=== PATIENT | male | born 1940 | race Caucasian/White ===

== ENCOUNTER 2016-07-14 19:53 | Emergency (ER) | payer OTHER ==
--- NOTE | 2016-07-14 20:04 | UCPHY ---
H & P Patient Type: New HPI/ROS: HPI CHIEF COMPLAINT: Mechanical trip and fall HISTORY OF PRESENT ILLNESS: This patient very pleasant 76-year-old male, significant past medical history for Parkinson's disease, presents to the urgent care by private vehicle with his for right shoulder pain and sternal pain when he takes a deep breath in. He denies shortness of breath or significant chest pain. Denies head strike, denies headache, neck pain, back pain. States he was playing basketball with his grandkids tripped and fell landing on his right shoulder he now has pain to his right posterior shoulder in 1 focal area as well as sternal pain. Denies any other areas of trauma or pain not on any blood thinners. Tetanus shot is up-to-date. Past Medical History: Parkinson, prostate cancer Past Surgical History: Gallbladder removal, deep brain stimulators Social History: denies use of drugs alcohol tobacco products, lives locally, at bedside Family History: Noncontributory ROS REVIEW OF SYSTEMS: A comprehensive 10 point review of systems is otherwise negative aside from elements mentioned in the history of present illness. Exam Constitutional triage nursing summary reviewed, vital signs reviewed, awake/ alert. Eyes normal conjunctivae and sclera, EOMI, PERRLA. HENT normal inspection, atraumatic, moist mucus membranes, no epistaxis, neck supple/ no meningismus, no raccoon eyes. Respiratory clear to auscultation bilaterally, normal breath sounds, no respiratory distress, no wheezing. Cardiovascular rate normal, regular rhythm, no murmur, no edema, distal pulses normal. Gastrointestinal soft, non-tender, no rebound, no guarding, normal bowel sounds, no distension, no pulsatile mass. Genitourinary no CVA tenderness. Musculoskeletal right shoulder: full range of motion of the right shoulder, focal tenderness over the posterior scapula 1 particular area, skin tear to the right elbow, distally neurovascular intact good pulse, good cap refill, good radial pulse, nontender to palpation over the sternal region, no laceration, no midline vertebral tenderness, full range of motion, no calf swelling, no tenderness of extremities, no meningismus, good pulses, neurovascularly intact. Skin pink, warm, & dry, no rash, skin atraumatic. Neurologic awake, alert and oriented x 3, AAOx3, moves all 4 extremities equally, motor intact, sensory intact, CN II-XII intact, normal cerebellar, normal vision, normal speech. Psychiatric normal mood/affect. Heme/Lymph/Immune no lymphadenopathy. Differential Diagnosis: includes but is not limited to in a particular, soft tissue injury, bony contusion, musculoskeletal injury, shoulder fracture, rib fracture, sternal fracture, pneumothorax, hemothorax Medical Decision Making: plan for this patient to have a x-ray of the right shoulder, plan for two view chest x-ray. Re-evaluation: ED x-ray right shoulder: this shows a distal comminuted clavicle fracture. ED x-ray chest x-ray 2 view: negative for acute cardiopulmonary disease specifically no evidence of pneumothorax hemothorax significant rib fractures. There are nerve stimulators bilateral anterior chest visualized. 2135: This patient has a distal comminuted clavicular fracture. Patient be placed in a sling. Will need orthopedic follow-up. [place] for pain control. Patient should ice her shoulder. Source: Patient - Family History Significant Family History: No pertinent family hx Constitutional: Initial Vital Signs Temperature (C) 36.6 C 07/14/16 20:13 Heart Rate 77 07/14/16 20:13 Respiratory Rate 18 07/14/16 20:13 Blood Pressure 123/62 H 07/14/16 20:13 O2 Sat (%) 97 07/14/16 20:13 O2 Delivery Mode Room Air Allergies/Adverse Reactions: No Known Allergies Allergy (Verified 08/09/12 18:27) Home Medications: Medication Instructions Recorded Rasagiline Mesylate [Azilect] 1 mg PO 08/09/12 Ropinirole HCl [Requip Xl] 16 mg PO 08/09/12 Silodosin [Rapaflo] 8 mg PO 08/09/12 Hydrocodone/APAP 5/325 [[place] 1 - 2 tab PO Q4H PRN #10 tab 07/14/16 5/325 (*)] Medical Decision Making - Data Points Medications Given: Discontinued Medications Diphtheria/Tetanus/Acell Pertussis (Boostrix) 0.5 ml IM .ONCE ONE Stop: 07/14/16 20:19 Last Admin: 07/14/16 20:37 Dose: 0.5 ml Ibuprofen (Motrin) 400 mg PO ONCE ONE Stop: 07/14/16 20:13 Last Admin: 07/14/16 20:37 Dose: 400 mg Departure - Departure Disposition: Home, Routine, Self-Care Clinical Impression: Clavicle fracture Qualifiers: Encounter type: initial encounter Clavicle location: lateral end Fracture type : closed Fracture alignment: nondisplaced Laterality: right Qualified Code(s): S42.034A - Nondisplaced fracture of lateral end of right clavicle, initial encounter for closed fracture Condition: Good Instructions: Clavicle Fracture (ED) Additional Instructions: 1.Ice her shoulder. 2.take [place] if you needed for severe pain. 3. Please stay in your sling. Please follow up with Orthopedics. Call their for an appointment. Referrals: NONE *PRIMARY CARE P,. [Primary Care Provider] - As per Instructions Segun Denney MD [Medical Doctor] - As per Instructions Prescriptions: Hydrocodone/APAP 5/325 [[place] 5/325 (*)] 1 - 2 tab PO Q4H PRN #10 tab PRN Reason: Pain, Moderate - PQRS PQRS Measurement: 134: Depression screening and followup, PRIME MD-PHQ2 (12 years and older) Over the last 2 weeks, how often have you been bothered by any of the following problems? 1. Feeling down, depressed, or hopeless? 2. Little interest or pleasure in doing things? Patient answered no to both 1 and 2 130: Documentation of medications. Reviewed all patient medications, doses, route and frequency. 226: Do you smoke? No. 47: 65 and older: Advanced care planning. Patient designates surrogate decision maker as Spouse 51: 18 years old and older with diagnosis of COPD, spirometry performance. Patient has no history of COPD 52: 18 years old and older with COPD and symptoms of COPD or FEV1<60% predicted prescribed a B Agonist. Spirometry not performed; equipment not available.
[2016-07-14] MEDS ORDERED: IBUPROFEN 200 MG TAB PO ONE (20:12)
[2016-07-14 20:16] VITALS: RESP 18; TEMP 98; O2SAT 97
[2016-07-14] MEDS ORDERED: TDAP ADULT 0.5 ML INJ (BOOSTRIX) IM ONE (20:18)
[2016-07-14] MEDS ORDERED: HYDROCOD/APAP 5/325 PREPACK#6 BTL TAKEHOME ONE (21:45)
[2016-07-14 23:32] VITALS: BP 124/62; PULSE 74
== END 2016-07-14 23:03 | disposition home or self-care (01) ==
LOC: CED 19:53
PROC: 3E0234Z Introduction of Serum, Toxoid and Vaccine into Muscle, Percutaneous Approach (ICD-10-PCS; principal; 2016-07-14)
DX: S42.034A Nondisplaced fracture of lateral end of right clavicle, initial encounter for closed fracture (principal); W19.XXXA Unspecified fall, initial encounter; Y93.67 Activity, basketball; Z85.46 Personal history of malignant neoplasm of prostate
CPT/HCPCS: 71020; 73030; 90471; 90715; G0463; 23500-PO; 99204-PO

== ENCOUNTER → 2016-10-24 | Day surgery (SDC) | payer OTHER ==
[~2016-10-24] MED LIST: BUPIVACAINE/EPI 0.5% 30 ML SDV ONE; ERTAPENEM 1 GM in NS 100 ML IV ONE; HYDROCODONE/APAP 5/325 TAB ONE; HYDROmorphONE/DILAUDID 1 MG/ML SYR IVP PRN; IBUPROFEN 600 MG TAB PO SCH; IOPAMIDOL (ISOVUE-300) 100 ML BTL ONE; KETOROLAC 15 MG/1 ML SDV IVP SCH; KETOROLAC 30 MG/1 ML SDV IVP ONE; NALOXONE HCL 0.4 MG/ML INJ IVP PRN; NS 1,000 ML IV ONE; ONDANSETRON 4 MG/2 ML VIAL IVP ONE; ONDANSETRON 4 MG/2 ML VIAL IVP PRN; PROPOFOL/EMULSION 500 MG/50 ML BOTTLE IV ONE; fentaNYL 100 MCG/2 ML INJ ONE
--- NOTE | 2016-10-24 06:27 | EDPHY ---
H & P Stated Complaint: low mid-abd pain x1d, nausea, urinary hesitancy, fever Source: Patient Exam Limitations: No limitations - Personal History Current Tetanus/Diphtheria Vaccine: Yes Current Tetanus Diphtheria and Acellular Pertussis (TDAP): Yes - Medical/Surgical History Hx Asthma: No Hx Chronic Respiratory Disease: No Hx Diabetes: No Hx Cardiac Disease: No Hx Renal Disease: No Hx Cirrhosis: No Hx Alcoholism: No Hx HIV/AIDS: No Hx Splenectomy or Spleen Trauma: No Other PMH: Parkinson's, implanted deep brain stimulator, cholecystectomy, hx prostate ca, hx lipoma, L4-L5 fusion, no appendix noted (missing or abnormal placement?) during exploratory sgy in ) - Social History Smoking Status: Never smoked <Josefa Granda - Last Filed: 10/24/16 06:53> <Elbert Pritchard - Last Filed: 10/24/16 08:11> Time Seen by Provider: 10/24/16 06:12 HPI/ROS: HPI The patient presents with abdominal pain which began yesterday afternoon at around 3:30 p.m.. It started slowly, it feels like a dull ache in his lower abdomen and has been intermittent. However, he awoke at 4:30 a.m. this morning with severe pain which was worse and now continues. This is associated with nausea and some difficulty urinating. He did take milk of magnesia yesterday for possible constipation and he has had some loose bowel movements today. He had a temperature of 100.3 according to his .. REVIEW OF SYSTEMS Constitutional: No fever, no chills. Eyes: No discharge. ENT: No sore throat. Cardiovascular: No chest pain, no palpitations. Respiratory: No cough, no shortness of breath. Gastrointestinal: See HPI Genitourinary: No hematuria. Musculoskeletal: No back pain. Skin: No rashes. Neurological: No headache. PMHx: Status post cholecystectomy, Parkinson's with deep brain stimulator Soc Hx: Lives at home with his PHYSICAL General Appearance: Alert, no distress Eyes: Pupils equal and round no pallor or injection ENT, Mouth: Mucous membranes moist Respiratory: There are no retractions, lungs are clear to auscultation Cardiovascular: Regular rate and rhythm, palpable pacemaker in left chest wall Gastrointestinal: Abdomen is soft with tenderness in left lower and right lower quadrants with guarding in the right lower quadrant Neurological: A&O, moves all extremities Skin: Warm and dry, no rashes Musculoskeletal: Neck is supple non tender Extremities: symmetrical, full range of motion Psychiatric: Patient is oriented X 3, there is no agitation (Josefa Granda) - Social History Additional Social History: PCP: Dr. Casandra Koehler (Elbert Pritchard) Constitutional: Initial Vital Signs Temperature (C) 36.8 C 10/24/16 05:55 Heart Rate 81 10/24/16 05:55 Respiratory Rate 16 10/24/16 05:55 Blood Pressure 117/70 10/24/16 05:55 O2 Sat (%) 94 10/24/16 05:55 O2 Delivery Mode Room Air Allergies/Adverse Reactions: pistachio nut Allergy (Verified 10/24/16 06:05) Rash watermelon Allergy (Verified 10/24/16 06:05) Anaphylaxis Home Medications: Medication Instructions Recorded Rasagiline Mesylate [Azilect] 1 mg PO 08/09/12 Carbidopa-Levo ER 25-100 Tab 10/24/16 Docusate Sodium 10/24/16 MAGNESIUM 10/24/16 Melatonin 10/24/16 Sildenafil Citrate 10/24/16 Silodosin [RAPAFLO] 10/24/16 Vitamin D3 10/24/16 Medical Decision Making <Josefa Granda - Last Filed: 10/24/16 06:53> - Diagnostics Imaging: Discussed imaging studies w/ scallop raker Radiologist, I viewed and interpreted images myself <Elbert Pritchard - Last Filed: 10/24/16 08:11> - Diagnostics Imaging Results: Imaging Impressions Abdomen CT 10/24/16 06:23 Impression: Acute appendicitis. Results called and discussed with Elbert Pritchard M.D., at 10/24/2016 8:03 General information for patients regarding this examination can be found at [email or web address]. If you have questions or comments about this report, please contact me at (hospital) or [phone] (cell). Differential Diagnosis: This is a 76-year-old man who presents from home with approximately 14 hours of right lower quadrant abdominal pain associated with nausea and fever. Differential diagnosis includes appendicitis, urinary tract infection, diverticulitis, enteritis. Patient's labs returned and demonstrated a leukocytosis with slightly elevated bilirubin. CT scan is pending at time of sign-out, Dr. Pritchard is to follow up on this result and this will determine the patient's disposition. (Josefa Granda) Other Provider: 0700: I assumed care of this patient at shift change from Dr. Granda pending abdominal CT. 0800: CT shows acute appendicitis. I discussed these findings with the patient and his . 1g IV Invanz administered. Last PO intake around 21:00 last night. 0805: Surgeon paged. 0809: Consulted with Dr. Michele, surgeon. He requests 30mg IV Toradol. He will assess patient in the ED. (Elbert Pritchard) - Data Points Laboratory Results: Laboratory Results 10/24/16 06:25 10/24/16 06:25 10/24/16 10/24/16 10/24/16 08:00 06:25 06:25 WBC 16.82 10^3/uL H 10^3/uL (3.80-9.50) RBC 4.72 10^6/uL 10^6/uL (4.40-6.38) Hgb 15.0 g/dL g/dL (13.7-17.5) Hct 44.2 % % (40.0-51.0) MCV 93.6 fL fL (81.5-99.8) MCH 31.8 pg pg (27.9-34.1) MCHC 33.9 g/dL g/dL (32.4-36.7) RDW 13.0 % % (11.5-15.2) Plt Count 192 10^3/uL 10^3/uL (150-400) MPV 9.6 fL fL (8.7-11.7) Neut % (Auto) 85.9 % H % (39.3-74.2) Lymph % (Auto) 3.2 % L % (15.0-45.0) [place] % (Auto) 10.1 % % (4.5-13.0) Eos % (Auto) 0.1 % L % (0.6-7.6) Baso % (Auto) 0.2 % L % (0.3-1.7) Nucleat RBC Rel Count 0.0 % % (0.0-0.2) Absolute Neuts (auto) 14.45 10^3/uL H 10^3/uL (1.70-6.50) Absolute Lymphs (auto) 0.53 10^3/uL L 10^3/uL (1.00-3.00) Absolute Monos (auto) 1.70 10^3/uL H 10^3/uL (0.30-0.80) Absolute Eos (auto) 0.01 10^3/uL L 10^3/uL (0.03-0.40) Absolute Basos (auto) 0.04 10^3/uL 10^3/uL (0.02-0.10) Absolute Nucleated RBC 0.00 10^3/uL 10^3/uL (0-0.01) Immature Gran % 0.5 % % (0.0-1.1) Immature Gran # 0.09 10^3/uL 10^3/uL (0.00-0.10) Sodium 135 mEq/L mEq/L (134-144) Potassium 4.1 mEq/L mEq/L (3.5-5.2) Chloride 102 mEq/L mEq/L (97-110) Carbon Dioxide 24 mEq/l mEq/l (22-31) Anion Gap 9 mEq/L mEq/L (8-16) BUN 17 mg/dL mg/dL (7-23) Creatinine 0.8 mg/dL mg/dL (0.7-1.3) Estimated GFR > 60 Glucose 104 mg/dL H mg/dL (70-100) Calcium 9.0 mg/dL mg/dL (8.5-10.4) Total Bilirubin 1.5 mg/dL H mg/dL (0.1-1.4) Conjugated Bilirubin 0.3 mg/dL mg/dL (0.0-0.5) Unconjugated Bilirubin 1.2 mg/dL H mg/dL (0.0-1.1) AST 20 IU/L IU/L (17-59) ALT 33 IU/L IU/L (21-72) Alkaline Phosphatase 71 IU/L IU/L (38-126) Total Protein 6.4 g/dL g/dL (6.3-8.2) Albumin 3.9 g/dL g/dL (3.5-5.0) Lipase 152.0 IU/L IU/L (23-300) Urine Color Pending Urine Appearance Pending Urine pH Pending Ur Specific [place] Pending Urine Protein Pending Urine Ketones Pending Urine Blood Pending Urine Nitrate Pending Urine Bilirubin Pending Urine Urobilinogen Pending Ur Leukocyte Esterase Pending Urine Glucose Pending Medications Given: Discontinued Medications Sodium Chloride (Ns) 1,000 mls @ 0 mls/hr IV ONCE ONE; Wide Open PRN Reason: Protocol Stop: 10/24/16 06:24 Last Admin: 10/24/16 06:30 Dose: 1,000 mls Sodium Chloride (Ns) 1,000 mls @ 0 mls/hr IV ONCE ONE; Wide Open PRN Reason: Protocol Stop: 10/24/16 06:41 Last Admin: 10/24/16 07:26 Dose: 1,000 mls Morphine Sulfate (Morphine) 6 mg IVP EDNOW ONE Stop: 10/24/16 06:24 Last Admin: 10/24/16 06:35 Dose: 2 mg Ondansetron HCl (Zofran) 4 mg IVP EDNOW ONE Stop: 10/24/16 06:24 Last Admin: 10/24/16 06:32 Dose: 4 mg Departure <Josefa Granda - Last Filed: 10/24/16 06:53> <Elbert Pritchard - Last Filed: 10/24/16 08:11> - Departure Disposition: [facility] Acute Clinical Impression: Acute appendicitis Qualifiers: Acute appendicitis type: with localized peritonitis Qualified Code(s): K35.3 - Acute appendicitis with localized peritonitis Condition: Fair Referrals: JAD KOEHLER [Primary Care Provider] - As per Instructions
[2016-10-24 06:34] LABS: % IMMATURE GRANULYOCYTES 0.5 % (0.0-1.1); ABSOLUTE IMMATURE GRANULOCYTES 0.09 10^3/uL (0.00-0.10); ADD DIFF? NO; ADD MORPH? NO; ADD SCAN? NO; ATYPICAL LYMPHOCYTE FLAG 0 (0-99); FRAGMENT RBC FLAG 0 (0-99); HEMATOCRIT 44.2 % (40.0-51.0); LEFT SHIFT FLG 20 (0-99); LIPEMIA HEMOLYSIS FLAG 90 (0-99); MEAN CELL HEMOGLOBIN 31.8 pg (27.9-34.1); MEAN CELL HEMOGLOBIN CONCENTR. 33.9 g/dL (32.4-36.7); MEAN CELL VOLUME 93.6 fL (81.5-99.8); MEAN PLATELET VOLUME 9.6 fL (8.7-11.7); PLATELET CLUMPS FLAG 10 (0-99); PLATELET COUNT 192 10^3/uL (150-400); RED BLOOD CELL COUNT 4.72 10^6/uL (4.40-6.38)
[2016-10-24 06:51] LABS: ALANINE AMINOTRANSFERASE 33 IU/L (21-72); ALBUMIN 3.9 g/dL (3.5-5.0); ALKALINE PHOSPHATASE 71 IU/L (38-126); ANION GAP 9 mEq/L (8-16); ASPARTATE AMINOTRANSFERASE 20 IU/L (17-59); BILIRUBIN,TOTAL 1.5 mg/dL (0.1-1.4); BILIRUBIN-CONJUGATED 0.3 mg/dL (0.0-0.5); BILIRUBIN-UNCONJUGATED 1.2 mg/dL (0.0-1.1); CARBON DIOXIDE 24 mEq/l (22-31); CHLORIDE 102 mEq/L (97-110); CREATININE 0.8 mg/dL (0.7-1.3); GLOMERULAR FILTRATION RATE > 60; GLUCOSE 104 mg/dL (70-100); POTASSIUM 4.1 mEq/L (3.5-5.2); SODIUM 135 mEq/L (134-144); TOTAL PROTEIN 6.4 g/dL (6.3-8.2)
[2016-10-24 08:06] LABS: COLOR YELLOW; LEUKOCYTE ESTERASE,URINE NEGATIVE (NEGATIVE); NITRITE,URINE NEGATIVE (NEGATIVE)
--- NOTE | 2016-10-24 09:22 | PDANEPAE ---
ANE History of Present Illness 76 yo for lap beverly h/o Parkinson s/p DBS ANE Past Medical History - Cardiovascular History Hx Hypertension: No Hx Arrhythmias: No Hx Chest Pain: No Hx Coronary Artery / Peripheral Vascular Disease: No Hx CHF / Valvular Disease: No Hx Palpitations: No - Pulmonary History Hx COPD: No Hx Asthma/Reactive Airway Disease: No Hx Recent Upper Respiratory Infection: No Hx Oxygen in Use at Home: No - Neurologic History Hx Cerebrovascular Accident: No Hx Seizures: No Hx Dementia: No - Endocrine History Hx Diabetes: No ANE Patient History - Allergies Allergies/Adverse Reactions: pistachio nut Allergy (Verified 10/24/16 06:05) Rash watermelon Allergy (Verified 10/24/16 06:05) Anaphylaxis - Home Medications Home medications: home medication list seen and reviewed Home Medications: Rasagiline Mesylate [Azilect] 1 mg PO 08/09/12 [Last Taken Unknown] Carbidopa-Levo ER 25-100 Tab 10/24/16 [Last Taken Unknown] Docusate Sodium 10/24/16 [Last Taken Unknown] MAGNESIUM 10/24/16 [Last Taken Unknown] Melatonin 10/24/16 [Last Taken Unknown] Sildenafil Citrate 10/24/16 [Last Taken Unknown] Silodosin [RAPAFLO] 10/24/16 [Last Taken Unknown] Vitamin D3 10/24/16 [Last Taken Unknown] - NPO status NPO Since - Liquids (Date): 10/24/16 NPO Since - Liquids (Time): 06:00 NPO Since - Solids (Date): 10/23/16 NPO Since - Solids (Time): 21:00 - Smoking Hx Smoking Status: Never smoked ANE Labs/Vital Signs - Labs Result Diagrams: 10/24/16 06:25 10/24/16 06:25 - Vital Signs Blood Pressure: 118/78 Heart Rate: 81 Respiratory Rate: 16 O2 Sat (%): 94 Height: 6 ft 1 in Weight: 78.471 kg ANE Physical Exam - Airway Neck exam: decreased ROM Mallampati Score: Class 3 Mouth exam: normal dental/mouth exam - Pulmonary Pulmonary: no respiratory distress - Cardiovascular Cardiovascular: regular rate and rhythym ANE Anesthesia Plan Anesthesia Plan: general endotracheal anesthesia
--- NOTE | 2016-10-24 09:31 | POSTOPPROG ---
Post Op Note Date of Operation: 10/24/16 Surgeon: Cristóbal Michele Anesthesiologist: Arabella Anesthesia: GET(General Endotracheal) Pre-op Diagnosis: Acute appendicitis Post-op Diagnosis: Same Procedure: Lap Appy Findings: Suppurative appendix Inf/Abcess present in the surg proc area at time of surgery?: Yes Depth: Organ Space EBL: Minimal Specimen(s): appendix
--- NOTE | 2016-10-24 09:53 | GHP ---
[f rep st] PREOP HISTORY AND PHYSICAL DATE OF ADMISSION: 10/24/2016 REASON FOR EVALUATION: Acute appendicitis. HISTORY OF PRESENT ILLNESS: 76-year-old male, significant history for Parkinson disease, presents to the emergency room with a 1-day history of diffuse central abdominal pain with right lower quadrant localization. No prior history of similar complaints. Associated nausea, without vomiting. Bowel movements are constipated. Family tried milk of magnesia without relief of symptoms, and no specific voiding complaints. Pain continued to worsen throughout the course of the morning, bring him to the emergency room. ED workup at that point in time disclosed a thickened appendix with appendicolith. Surgery has been requested for further recommendations. PAST MEDICAL HISTORY: Parkinson disease. PAST SURGICAL HISTORY: Open cholecystectomy, deep brain stimulation, L4-5 fusion. MEDICATIONS: Azilect, Sinemet, Rapaflo, vitamin D, sildenafil, melatonin, magnesium, Colace. ALLERGIES: Pistachio, watermelon. No drug allergies. SOCIAL HISTORY: No alcohol, no tobacco. The patient is . He is retired. PHYSICAL EXAMINATION: VITAL SIGNS: Temperature 36.8, blood pressure 118/78, pulse 80, respirations 16. GENERAL: The patient is alert, appropriate, comfortable at present time, anicteric. No cervical lymphadenopathy. HEART: Regular. LUNGS: Clear. ABDOMEN: Soft, distended, well-healed right upper quadrant oblique cholecystectomy incision, mild right lower quadrant tenderness with Rovsing sign. No abdominal hernias. EXTREMITIES: Unremarkable. NEUROLOGIC: Slow and deliberate speech. Otherwise, alert and appropriate. Notable pill-rolling tremor present. SKIN: Unremarkable. LABORATORY DATA: White count 17, hemoglobin 15, platelets of 190. Electrolytes within reference range. Liver enzymes within reference range. Total bilirubin 1.5, unconjugated fraction 1.2. Urinalysis unremarkable. IMAGING: CT abdomen and pelvis, with notably thickened appendix with appendicolith and periappendiceal inflammatory change. Images were directly reviewed on PACS. IMPRESSION: Acute appendicitis. PLAN: Laparoscopic appendectomy. Surgical risks and benefits were explained to the patient and in detail, including but not limited to bleeding, infection, open conversion, as well as alternative diagnoses. All questions were answered. They desire to proceed. /[id number]/MODL MTDD
[2016-10-24] MEDS: HYDROCODONE/APAP 5/325 TAB PO PRN ×2 (10:40→11:28)
[2016-10-24 11:02] VITALS: BP 120/74; PULSE 78; RESP 16; O2SAT 94
[2016-10-24 11:25] VITALS: TEMP 97.9
--- NOTE | 2016-10-24 15:52 | POSTANESTH ---
Post Anesthetic Evaluation Cardiovascular Status: Normal, Stable Respiratory Status: Normal, Stable Level of Consciousness/Mental Status: Can Participate in Eval Pain Control: Adequate, Prn Tx Ordered Nausea/Vomiting Control: Adequate, Prn Tx Ordered Complications Possibly Related to Anesthesia: None Noted
--- NOTE | 2016-10-24 19:49 | GOP ---
[f rep st] OPERATIVE REPORT DATE OF OPERATION: 10/24/2016 SURGEON: Cristóbal Michele MD ANESTHESIA: General. ANESTHESIOLOGIST: Dr. Bell. PREOPERATIVE DIAGNOSIS: Acute appendicitis. POSTOPERATIVE DIAGNOSIS: Acute appendicitis. PROCEDURE PERFORMED: Laparoscopic appendectomy. FINDINGS: Suppurative appendix. INDICATIONS: 76-year-old male with acute appendicitis. He is undergoing a laparoscopic appendectomy at this time. Risks and benefits were explained, including bleeding, infection, open conversion, as well as alternative diagnoses. All questions were answered. He desires to proceed. DESCRIPTION OF PROCEDURE: General anesthesia was induced. The abdomen was pre- injected with 0.5% Marcaine with epinephrine. A vertical infraumbilical cutdown was created. A 10 mm trocar was placed under direct visualization. The abdomen was insufflated to 15 mmHg. Two additional 5 mm midline ports were inserted. The appendix was acutely thickened with suppuration, without evidence of perforation. The mesoappendix was divided with Harmonic Scalpel. The base was transected flush with the cecum with an endoscopic TORIBIO stapler, and brought to the umbilical port site intact using EndoCatch pouch. Satisfactory hemostasis was assured. Trocars were removed under direct visualization. The infraumbilical midline fascia was closed with a running Vicryl suture. The wounds were closed with Monocryl followed by Dermabond. The patient was taken to recovery room uneventfully. /[id number]/MODL MTDD
== END | disposition home or self-care (01) ==
LOC: FSGY 09:00
PROVIDERS: ATTEND Surgery
PROC: 0DTJ4ZZ Resection of Appendix, Percutaneous Endoscopic Approach (ICD-10-PCS; principal; 2016-10-24 09:00)
DX: K35.3 Acute appendicitis with localized peritonitis (principal); G20 Parkinson's disease
CPT/HCPCS: 96374; J1335; J2405; J2704; J3010; Q9967

== ENCOUNTER → 2018-08-16 | Outpatient (CLI) | payer OTHER | LOC: BMCIMAGING 13:45 | PROVIDERS: ATTEND Family Medicine | DX: I80.01 Phlebitis and thrombophlebitis of superficial vessels of right lower extremity (principal) ==